=== PATIENT | male | born 1990 | race African-American/Black ===

== ENCOUNTER 2017-01-12 11:26 | Emergency (ER) | payer MEDICAID ==
[~2017-01-12] VITALS: Ht 167.6 cm; Wt 77.1 kg
[~2017-01-12 11:26] MED LIST: DESYREL50 MG PO; LIBRIUM5 M1 PO; VALIUM10 MG PO
[2017-01-12 11:32] VITALS: BP 147/83
--- NOTE | 2017-01-12 12:35 | NUR ---
Patient ambulated to bed 7. ACCOUNTS SPECIALIST evaluating patient at bedside.
--- NOTE | 2017-01-12 12:41 | NUR ---
26/M bib for evaluation of itching all over body x3 weeks. Pt also states "I want to make sure I don't have anything." Patient also has a rash to penile area. Patient is AOX4, ambulates with steady gait. VSS.
--- NOTE | 2017-01-12 13:05 | NUR ---
Patient being evaluated by physician at bedside.
[2017-01-12] MEDS ORDERED: PENICILLIN G BENZATHINE L-A 2.4 MU/4 ML SYR IM ONE (13:10)
[2017-01-12] MEDS ORDERED: diphenhydrAMINE 50 MG/ML VIAL IVP ONE (13:10)
[2017-01-12] MEDS ORDERED: FAMOTIDINE 20 MG/2 ML VIAL IVP ONE (13:10)
--- NOTE | 2017-01-12 15:05 | NUR ---
IV removed, catheter intact and site benign. Applied folded 4x4 gauze and tape to stop bleeding.
--- NOTE | 2017-01-12 15:05 | NUR ---
Patient appears to be resting comfortably in bed. Vital Signs within normal limits. Respirations even and unlabored.
[2017-01-12 16:23] VITALS: BP 132/76
--- NOTE | 2017-01-12 16:23 | NUR ---
Patient discharged with v/s stable. Written and verbal after care instructions given and explained. Patient alert, oriented and verbalized understanding of instructions. Ambulatory with steady gait. All questions addressed prior to discharge. ID band removed. Patient advised to follow up with PMD. Rx of CLOTRIMAZOLE 1 % TOPICAL CREAM & DIPHENHYDRAMINE HYDROCHLORIDE 25MG TAB given. Patient educated on indication of medication including possible reaction and side effects. Opportunity to ask questions provided and answered.
--- NOTE | 2017-01-12 16:31 | NUR ---
Chart checked and completed. The patient's care was reviewed and supervised by Katie Vazquez RN.
== END 2017-01-12 16:23 | disposition home or self-care (01) ==
LOC: MED 11:26
DX: N48.1 Balanitis (principal); R03.0 Elevated blood-pressure reading, without diagnosis of hypertension; F17.200 Nicotine dependence, unspecified, uncomplicated; R05 Cough; R51 Headache; Z20.2 Contact with and (suspected) exposure to infections with a predominantly sexual mode of transmission
CPT/HCPCS: 36415; 81001; 85025; 86702; 87491; 96372; 96374; 96375; 99284; J0561; J1200; J3490

== ENCOUNTER 2019-08-30 07:51 | Emergency (ER) | payer MEDICAID ==
[~2019-08-30] VITALS: Ht 172.7 cm; Wt 73.5 kg
[~2019-08-30 07:51] MED LIST changes: -DESYREL50 MG PO; +DIAZ10TA7 PO; +LIB5 PO; -LIBRIUM5 M1 PO; +TRAZ-343 PO; -VALIUM10 MG PO
[2019-08-30 07:55] VITALS: BP 133/84
[2019-08-30 11:34] VITALS: BP 105/58
== END 2019-08-30 11:34 | disposition home or self-care (01) ==
LOC: MED 07:51
DX: M72.2 Plantar fascial fibromatosis (principal); Z79.899 Other long term (current) drug therapy
CPT/HCPCS: 73630; 99283; Q0092